=== PATIENT | female | born 2000 | race Caucasian/White ===

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

== ENCOUNTER 2022-10-18 01:32 | Emergency (ER) | payer BC, OTHER ==
[2022-10-18] MEDS ORDERED: Clindamycin 150 MG CAP ONE (01:58)
[2022-10-18] MEDS ORDERED: HYDROcodone/Acetaminophen 10/325 mg Tablet ONE (01:58)
[2022-10-18] MEDS ORDERED: Ondansetron ODT 4 MG TAB ONE (01:58)
== END 2022-10-18 02:25 | disposition home or self-care (01) ==
LOC: BURERS 01:32
DX: L03.113 Cellulitis of right upper limb (principal)
CPT/HCPCS: 99283; Q0162

== ENCOUNTER 2024-01-13 15:46 | Emergency (ER) | payer BC | END 2024-01-13 16:40 | disposition home or self-care (01) | LOC: BURERS 15:46 | DX: L23.9 Allergic contact dermatitis, unspecified cause (principal); L03.90 Cellulitis, unspecified | CPT/HCPCS: 99283 ==